=== PATIENT | male | born 1995 | race Caucasian/White ===

== ENCOUNTER → 2023-10-03 | Emergency (ER) | payer OTHER ==
[~2023-10-03] VITALS: Ht 190.5 cm; Wt 93.0 kg
== END | disposition home or self-care (01) ==
LOC: ER 10:58
DX: S91.311A Laceration without foreign body, right foot, initial encounter (principal); W45.8XXA Other foreign body or object entering through skin, initial encounter; Y93.89 Activity, other specified; Y92.832 Beach as the place of occurrence of the external cause; Y99.8 Other external cause status